=== PATIENT | male | born 1980 | race Two or more races ===

== ENCOUNTER 2017-05-03 23:41 | Emergency (ER) | payer BC, OTHER ==
[~2017-05-03] VITALS: Ht 172.7 cm; Wt 68.0 kg
[2017-05-03 23:57] VITALS: BP 144/65
== END 2017-05-04 01:31 | disposition home or self-care (01) ==
LOC: ER 23:47
DX: J01.10 Acute frontal sinusitis, unspecified (principal)
CPT/HCPCS: 99283; A4606; Z7610